=== PATIENT | male | born 1995 | race African-American/Black ===

== ENCOUNTER → 2018-07-14 | Outpatient (CLI) | payer OTHER ==
--- NOTE | 2018-07-14 12:07 | CARD ---
MR#: [id number] Date of Study: 07/14/2018 Ordering Physician: ISELA CADENA, Referring Physician: ISELA CADENA, Tech: Delores Ibarra APPROVED REPORT EXAM: Two-dimensional and M-mode echocardiogram with Doppler and color Doppler. Other Information Quality : GoodHR: 70bpm Rhythm : NSR INDICATION Palpitations 2D DIMENSIONS RVDd2.2 (2.9-3.5cm)Left Atrium(2D)2.7 (1.6-4.0cm) IVSd0.6 (0.7-1.1cm)Aortic Root(2D)2.8 (2.0-3.7cm) LVDd4.9 (3.9-5.9cm)LVOT Diameter2.2 (1.8-2.4cm) PWd1.1 (0.7-1.1cm)IVSs3.3 (0.8-1.2cm) Aortic Valve AoV Peak Davi.124.4cm/sAoV VTI24.0cm AO Peak GR.6.2mmHgLVOT Peak Davi.84.3cm/s LVOT VTI 17.25cmAO Mean GR.3mmHg DARRON (VMAX)1.83ss6EZH (VTI)2.67cm2 Mitral Valve MV E Uffbqzqu93.5cm/sMV DECEL CHDD590pu MV A Xaynhpof82.8cm/sMV HXG91lo E/A Ratio1.9MVA (PHT)4.22cm2 TDI E/Lateral E'5.0E/Medial E'6.3 Pulmonary Valve PV Peak Vtmoppur075.1cm/sPV Peak Grad.4mmHg Tricuspid Valve TR P. Odnroyjv584yr/sRAP DJPPGROD2xlTo TR Peak Gr.74abGaZRWA63crLx Pulmonary Vein S1 Voiqydwq79.9cm/sD2 Hdmeeoox60.9cm/s PVa llbcwvvk540ocuf LEFT VENTRICLE The left ventricle is normal size. There is normal left ventricular wall thickness. The left ventricu lar systolic function is normal and the ejection fraction is within normal range. The Ejection Fracti on is 60-65%. There is normal LV segmental wall motion. The left ventricular diastolic function and f illing is normal for age. RIGHT VENTRICLE The right ventricle is normal size. There is normal right ventricular wall thickness. The right ventr icular systolic function is normal. ATRIA The left atrium size is normal. The right atrium size is normal. The interatrial septum is intact wit h no evidence for an atrial septal defect or patent foramen ovale as noted on 2-D or Doppler imaging. AORTIC VALVE The aortic valve is normal in structure and function. Doppler and Color Flow revealed no significant aortic regurgitation. There is no significant aortic valvular stenosis. MITRAL VALVE The mitral valve is normal in structure and function. There is no mitral valve stenosis. Doppler and Color-flow revealed trace mitral regurgitation. TRICUSPID VALVE The tricuspid valve is normal in structure and function. Doppler and Color Flow revealed trace tricus pid regurgitation. There is no tricuspid valve stenosis. PULMONIC VALVE The pulmonic valve is not well visualized. Doppler and Color Flow revealed trace pulmonic valvular re gurgitation. There is no pulmonic valvular stenosis. GREAT VESSELS The aortic root is normal in size. Normal pulmonary venous flow (Doppler). The IVC is normal in size and collapses >50% with inspiration. PERICARDIAL EFFUSION There is no evidence of significant pericardial effusion. Critical Notification Critical Value: No <Conclusion> The left ventricular systolic function is normal and the ejection fraction is within normal range. Th e Ejection Fraction is 60-65%. There is normal LV segmental wall motion. Signed by : Kanu Dela Cruz, Electronically Approved : 07/14/2018 12:05:13
== END | disposition home or self-care (01) ==
LOC: ECHO 09:52
PROVIDERS: ATTEND Internal Medicine Cardiovascular Disease
DX: R00.2 Palpitations (principal)
CPT/HCPCS: 93306